=== PATIENT | female | born 1935 | race Caucasian/White ===

== ENCOUNTER → 2024-05-24 | Outpatient (CLI) | payer MEDICARE, MEDICAID ==
[~2024-05-24] VITALS: Ht 154.9 cm; Wt 74.8 kg
[2024-05-24] MEDS: albuterol 2.5 MG/3 ML nebule NEB ONE (10:53)
[2024-05-24 10:54] VITALS: PULSE 81; RESP 16; O2SAT 98
[2024-05-24 11:06] VITALS: PULSE 83; RESP 18
== END | disposition home or self-care (01) ==
LOC: RT 10:15
PROVIDERS: ATTEND Physician Assistant
DX: R06.2 Wheezing (principal)
CPT/HCPCS: 94060; 94760; Z7610